=== PATIENT | female | born 1980 | race American Indian/Alaskan Native ===

== ENCOUNTER 2018-01-28 21:02 | Emergency (ER) | payer SELFPAY ==
[2018-01-28 22:50] LABS: HCG Qualitative,Urine Negative (Negative)
[2018-01-28 22:56] LABS: Bilirubin,Urine NEG (Negative); Blood,Urine NEG (Negative); Color,Urine Yellow (Yellow); Mucus,Urine FEW /HPF; Protein,Urine <15 mg/dL mg/dL (Negative)
[2018-01-28 22:57] LABS: WBC,Urine < 1.0 /HPF (0.0-6.0)
[2018-01-29 01:43] VITALS: BP 125/83
[2018-01-29] MEDS ORDERED: TORADOL IM ONE (04:51)
[2018-01-29] MEDS ORDERED: DECADRON IM ONE (04:54)
[2018-01-29] MEDS ORDERED: DECADRON ONE (04:59)
[2018-01-29] MEDS ORDERED: TORADOL ONE (04:59)
--- NOTE | 2018-01-29 05:17 | Emergency Department Report ---
ED Back Pain/Injury [facility] - General Chief Complaint: Back Pain/Injury Stated Complaint: BACK PAIN Time Seen by Provider: 01/29/18 04:50 Source: patient Limitations: No Limitations - History of Present Illness Initial Comments: 37-year-old [place] female comes to the emergency room complaining of back pain that she states she has had all week. Patient reports that she started moving on Wednesday and she started having pain on Wednesday. Patient reports that she was having back pain and asked her son to step on her back. She sustained as he put his foot in the middle of her back if felt like he was stepping on a ball. Patient reports that she did take Advil 800 mg yesterday 1 dose and reports that it did help with her pain. Patient reports that she has her most pain right under her right scapular. Patient denies any past medical history reports no known drug allergies currently takes no medications on a daily basis. MD Complaint: back pain -: days(s) (4) Place: home Severity scale (0 -10): 9 Quality: sharp Consistency: constant Improves With: medication Worsens With: movement Context: turning/twisting Treatments Prior to Arrival: NSAIDS - Related Data Previous Rx's Medication Instructions Recorded Last Taken Type Naproxen [Naprosyn] 500 mg PO Q12H #20 tablet 01/29/18 Unknown Rx Allergies Allergy/AdvReac Type Severity Reaction Status Date / Time No Known Allergies Allergy Unverified 01/28/18 21:41 ED Review of Systems ROS: Stated complaint: BACK PAIN Other details as noted in HPI ED Past Medical Hx - Past Medical History Previous Medical History?: No - Surgical History Past Surgical History?: No - Social History Smoking Status: Current Every Day Smoker - Medications Home Medications: Home Medications Medication Instructions Recorded Confirmed Last Taken Type Naproxen [Naprosyn] 500 mg PO Q12H #20 tablet 01/29/18 Unknown Rx ED Physical Exam - General Limitations: No Limitations General appearance: alert, in no apparent distress - Head Head exam: Present: atraumatic, normocephalic - ENT ENT exam: Present: mucous membranes moist - Respiratory Respiratory exam: Present: normal lung sounds bilaterally. Absent: respiratory distress - Cardiovascular Cardiovascular Exam: Present: regular rate, normal rhythm. Absent: systolic murmur, diastolic murmur, rubs, gallop - Back Exam Back exam: Present: full ROM, tenderness (midthoracic tenderness), muscle spasm - Expanded Back Exam Expanded Back exam: Negative Straight Leg Raising: Right, Left - Neurological Exam Neurological exam: Present: alert, oriented X3 - Psychiatric Psychiatric exam: Present: normal affect, normal mood - Skin Skin exam: Present: warm, dry, intact, normal color. Absent: rash ED Course Vital Signs 01/28/18 01/29/18 21:38 01:41 Temperature 98.6 F 98.7 F Pulse Rate 87 67 Respiratory 17 14 Rate Blood Pressure 145/85 125/83 O2 Sat by Pulse 100 Oximetry ED Medical Decision Making - Medical Decision Making Patient's been evaluated by this provider fast track. Toradol 30 mg IM given for pain management as well as trigger point injection with lidocaine and dexamethasone given in the right scapular angle. Critical care attestation.: If time is entered above; I have spent that time in minutes in the direct care of this critically ill patient, excluding procedure time. ED Disposition Clinical Impression: Trigger point with back pain Back pain Qualifiers: Back pain location: thoracic back pain Chronicity: acute Back pain laterality: right Qualified Code(s): M54.6 - Pain in thoracic spine Disposition: DC-01 TO HOME OR SELFCARE Is pt being admited?: No Does the pt Need Aspirin: No Condition: Stable Instructions: Trigger Point Pain (ED), Back Pain (ED) Additional Instructions: Please take pain medication as prescribed. All of with her primary care provider symptoms persist or gets worse. Prescriptions: Naproxen [Naprosyn] 500 mg PO Q12H #20 tablet Referrals: PRIMARY CARE [Primary Care Provider] - 3-5 Days [facility] [Provider Group] - 3-5 Days Forms: Work/School Release Form(ED)
== END 2018-01-29 05:27 | disposition home or self-care (01) ==
LOC: ED 21:02
DX: M54.6 Pain in thoracic spine (principal)
CPT/HCPCS: 81001; 81025; 96372; 99283; J1100; J1885

== ENCOUNTER 2020-03-14 10:39 | Emergency (ER) | payer SELFPAY ==
[2020-03-14 11:08] VITALS: BP 140/80
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
--- NOTE | 2020-03-14 12:56 | Emergency Department Report ---
HPI - General Chief Complaint: Anxiety Time Seen by Provider: 03/14/20 11:45 - HPI HPI: This is a 39-year-old female who presents to the emergency department with a complaint of some numbness and paresthesias that have been going on to the bilateral lower extremities for several weeks intermittently. She also complains of some nonspecific lightheadedness and/or dizziness. She also complains of some anxiety that has been going on for weeks, if not longer, that is causing her to have some hair loss. Patient also appears to be expressing some delusions. She says that there is some type of software that has been on her telephone and computer that is "tracking me", and that is also giving off some type of radiation that she believes is causing her previously mentioned symptoms. She has not taken anything for her symptoms prior to presentation. She denies any diagnosed psychiatric or medical conditions. She denies any alcohol or illicit drug use. She denies any auditory or visual hallucinations, or any suicidal or homicidal ideations. ED Past Medical Hx - Past Medical History Previous Medical History?: No - Surgical History Past Surgical History?: No - Social History Smoking Status: Current Every Day Smoker Substance Use Type: None - Medications Home Medications: Home Medications Medication Instructions Recorded Confirmed Last Taken Type Naproxen [Naprosyn] 500 mg PO Q12H #20 tablet 01/29/18 Unknown Rx ED Review of Systems ROS: Stated complaint: DIZZY Other details as noted in HPI Comment: All other systems reviewed and negative Constitutional: denies: chills, fever Eyes: denies: eye pain, vision change ENT: denies: ear pain, throat pain Respiratory: denies: cough, wheezing Cardiovascular: denies: palpitations, edema Gastrointestinal: denies: abdominal pain, vomiting Genitourinary: denies: dysuria, discharge Musculoskeletal: denies: back pain, arthralgia Neurological: numbness, paresthesias, other (dizzy). denies: headache Physical Exam - Physical Exam Vital Signs: Vital Signs 03/14/20 11:02 Temperature 98.6 F Pulse Rate 79 Respiratory 18 Rate Blood Pressure 140/80 O2 Sat by Pulse 100 Oximetry Physical Exam: GENERAL: The patient is well-developed well-nourished. HENT: Normocephalic. Atraumatic. Patient has moist mucous membranes. EYES: Extraocular motions are intact. NECK: Supple. Trachea is midline. CHEST/LUNGS: Clear to auscultation. There is no respiratory distress noted. HEART/CARDIOVASCULAR: Regular. There is no tachycardia. There is no murmur. ABDOMEN: Abdomen is soft, nontender. Patient has normal bowel sounds. SKIN: Skin is warm and dry. NEURO: The patient is awake, alert, and oriented. The patient is cooperative. The patient has no focal neurologic deficits. Normal speech. MUSCULOSKELETAL: There is no tenderness or deformity. There is no limitation range of motion. Muscle strength 5 out of 5 for upper and lower extremities bilaterally. ED Course Vital Signs 03/14/20 11:02 Temperature 98.6 F Pulse Rate 79 Respiratory 18 Rate Blood Pressure 140/80 O2 Sat by Pulse 100 Oximetry ED Medical Decision Making - Lab Data Result diagrams: 03/14/20 12:54 03/14/20 12:54 - EKG Data -: EKG Interpreted by Me EKG shows normal: sinus rhythm, axis, intervals, QRS complexes, ST-T waves Rate: normal - EKG Data When compared to previous EKG there are: previous EKG unavailable Interpretation: normal EKG - Medical Decision Making This patient presents to the emergency department with a complaint of some anxiety, lower extremity numbness/paresthesias, and she also appears to have some delusions. At the time of my examination the patient does not exhibit any significant anxiety. Heart and lung sounds are normal to auscultation. She is awake, alert, oriented, AAO x3. She does not have any focal, motor or sensory deficits and her cranial nerves are intact. She has full muscle strength to the bilateral upper and lower extremities. Patient's labs have been mostly unremarkable except for a slightly elevated TSH level, and a urine drug screen positive for marijuana. Vital signs have been reassuring throughout her ED course. Regarding the paresthesias, the patient does not appear to have any emergent medical condition that requires admission. She says that she has an appointment with a primary care physician on 27 March. Otherwise she can return to the emergency department with any worsening of her symptoms or with any acute distress. Patient does express, what I feel are, delusions. She talks about a cyber att ack, identity theft, being monitored by her job on her own personal electronics, and she describes that these electronics are giving off some type of radiation or energy. The patient does not want to stay in the emergency department for a mental health evaluation. She is awake, oriented, calm and appropriate. The patient is able to perform all of her ADLs. The patient allegedly has a job that she has been holding down despite these thoughts and/or delusions. She denies any auditory or visual hallucinations. She denies any suicidal or homicidal ideations. Therefore, the patient does not appear to meet criteria to be admitted 1013 or require inpatient psychiatric stabilization. The patient will be discharged home to follow-up with primary care and she has been given a referral for the [facility]. Critical Care Time: No Critical care attestation.: If time is entered above; I have spent that time in minutes in the direct care of this critically ill patient, excluding procedure time. ED Disposition Clinical Impression: Paresthesias, Anxiety Disposition: DC-01 TO HOME OR SELFCARE Is pt being admited?: No Condition: Stable Instructions: Paresthesia (ED), Anxiety (ED) Additional Instructions: Please follow-up with your primary care physician in the next few days if possible. I have given you a referral for the [facility] facility to follow-up regarding your anxiety and/or panic attacks. Return to the emergency department with any worsening of your symptoms or with any acute distress. Referrals: PRIMARY CARE, [Primary Care Provider] - 3-5 Days [facility] [Outside] - 3-5 Days Forms: Work/School Release Form(ED) Time of Disposition: 14:34
[2020-03-14 13:21] LABS: Basophils % (Auto) 0.4 % (0.0-1.8); Eosinophils % (Auto) 0.6 % (0.0-4.3); Hematocrit 38.9 % (30.3-42.9); Hemoglobin 13.6 gm/dl (10.1-14.3); Lymphocytes # (Auto) 1.6 K/mm3 (1.2-5.4); Lymphocytes % (Auto) 25.3 % (13.4-35.0); Mean Corpuscular HGB Conc 35 % (30-34); Mean Corpuscular Volume 85 fl (79-97); Monocytes # (Auto) 0.4 K/mm3 (0.0-0.8); Monocytes % (Auto) 6.5 % (0.0-7.3); Platelet Count 195 K/mm3 (140-440); Red Blood Count 4.55 M/mm3 (3.65-5.03); Red Cell Distribution Width 13.8 % (13.2-15.2)
[2020-03-14 13:24] LABS: Bilirubin,Urine NEG (Negative); Blood,Urine NEG (Negative); Color,Urine Yellow (Yellow); Protein,Urine <15 mg/dL mg/dL (Negative); WBC,Urine < 1.0 /HPF (0.0-6.0)
[2020-03-14 13:36] LABS: Blood Urea Nitrogen 7 mg/dL (7-17); Calcium 8.8 mg/dL (8.4-10.2); Hemolysis Index 12
[2020-03-14 13:37] LABS: Amphetamine Screen,Urine Negative; Benzodiazepines Screen,Urine Negative; Cocaine Screen,Urine Negative; Methadone Screen,Urine Negative; Opiate Screen,Urine Negative
[2020-03-14 13:45] LABS: BUN/Creatinine Ratio 10
[2020-03-14 14:14] LABS: Cannabinoid Screen,Urine Positive
== END 2020-03-14 14:53 | disposition home or self-care (01) ==
LOC: ED 10:39
DX: R20.2 Paresthesia of skin (principal); F41.9 Anxiety disorder, unspecified; F17.200 Nicotine dependence, unspecified, uncomplicated; Z79.899 Other long term (current) drug therapy
CPT/HCPCS: 36415; 80048; 80307; 80320; 81001; 84443; 85025; 93005; G0480

== ENCOUNTER 2020-11-27 20:35 | Emergency (ER) | payer OTHER ==
[2020-11-27 21:04] VITALS: BP 142/93
[2020-11-27] MEDS ORDERED: TETANUS,DIPH,PERTUSS(ACELL) VACCINE 0.5 ML SYRINGE IM ONE (21:23)
[2020-11-27] MEDS ORDERED: NEOMY 3.5 MG/BACIT 400 UNITS/POLY B 5000 UNITS/GM OINT PACKET TP STA (21:27)
--- NOTE | 2020-11-27 21:27 | Emergency Department Report ---
ED Lower Extremity HPI - General Chief Complaint: Animal Bite Stated Complaint: DOG BITE/RT LEG Time Seen by Provider: 11/27/20 21:23 Source: patient Mode of arrival: Ambulatory Limitations: Physical Limitation - History of Present Illness MD Complaint: leg injury (dog bite to right lower leg Just [employer]) -: Sudden Injury: Leg: Right Type of Injury: puncture wound Place: home Severity: mild Improves With: nothing Context: direct blow Associated Symptoms: swelling, ambulatory - Related Data Previous Rx's Medication Instructions Recorded Last Taken Type Naproxen [Naprosyn] 500 mg PO Q12H #20 tablet 01/29/18 Unknown Rx Amoxicillin/Potassium Clav 1 each PO BID #20 tablet 11/27/20 Unknown Rx [Augmentin 875-125 Tablet] Ketorolac [Toradol] 10 mg PO Q6H PRN #14 tablet 11/27/20 Unknown Rx Allergies Allergy/AdvReac Type Severity Reaction Status Date / Time No Known Allergies Allergy Unverified 01/28/18 21:41 ED Review of Systems ROS: Stated complaint: DOG BITE/RT LEG Other details as noted in HPI Comment: All other systems reviewed and negative ED Past Medical Hx - Past Medical History Previous Medical History?: No - Surgical History Past Surgical History?: No - Social History Smoking Status: Current Every Day Smoker Substance Use Type: None - Medications Home Medications: Home Medications Medication Instructions Recorded Confirmed Last Taken Type Naproxen [Naprosyn] 500 mg PO Q12H #20 tablet 01/29/18 Unknown Rx Amoxicillin/Potassium Clav 1 each PO BID #20 tablet 11/27/20 Unknown Rx [Augmentin 875-125 Tablet] Ketorolac [Toradol] 10 mg PO Q6H PRN #14 tablet 11/27/20 Unknown Rx ED Physical Exam - General Limitations: Physical Limitation General appearance: alert, in no apparent distress - Head Head exam: Present: atraumatic, normocephalic - Eye Eye exam: Present: normal appearance, PERRL, EOMI Pupils: Present: normal accommodation - ENT ENT exam: Present: normal exam, mucous membranes moist - Neck Neck exam: Present: normal inspection - Respiratory Respiratory exam: Present: normal lung sounds bilaterally. Absent: respiratory distress - Cardiovascular Cardiovascular Exam: Present: regular rate, normal rhythm. Absent: systolic murmur, diastolic murmur, rubs, gallop - GI/Abdominal GI/Abdominal exam: Present: soft, normal bowel sounds - Extremities Exam Extremities exam: Present: normal inspection, tenderness, normal capillary refill - Expanded Lower Extremity Exam Right Lower Leg exam: Present: tenderness, swelling, ecchymosis (puncture wound to right leg tender. pulse 2+. full ROM) Ankle exam: Present: normal inspection Foot/Toe exam: Present: normal inspection Neuro vascular tendon exam: Present: no vascular compromise Gait: Positive: observed and normal 1 - puncture wound site - Back Exam Back exam: Present: normal inspection - Neurological Exam Neurological exam: Present: alert, oriented X3 - Psychiatric Psychiatric exam: Present: normal affect, normal mood - Skin Skin exam: Present: warm, dry, intact, normal color. Absent: rash ED Course Vital Signs 11/27/20 21:04 Temperature 98.6 F Pulse Rate 76 Respiratory 16 Rate Blood Pressure 142/93 [Right] O2 Sat by Pulse 100 Oximetry Critical care attestation.: If time is entered above; I have spent that time in minutes in the direct care of this critically ill patient, excluding procedure time. ED Disposition Clinical Impression: Dog bite, Puncture wound, Tetanus toxoid inoculation Disposition: - TO HOME OR SELFCARE Is pt being admited?: No Does the pt Need Aspirin: No Condition: Stable Instructions: VIS, Tetanus, Diphtheria (Td); Tetanus, Diphtheria, Pertussis (Tdap) - CDC, Animal Bite, Adult, [id number] Prescriptions: Amoxicillin/Potassium Clav [Augmentin 875-125 Tablet] 1 each PO BID #20 tablet Ketorolac [Toradol] 10 mg PO Q6H PRN #14 tablet PRN Reason: Pain Referrals: [facility] [Provider Group] - 3-5 Days Forms: Work/School Release Form(ED)
== END 2020-11-27 23:30 | disposition home or self-care (01) ==
LOC: ED 20:35
DX: S81.831A Puncture wound without foreign body, right lower leg, initial encounter (principal); F17.200 Nicotine dependence, unspecified, uncomplicated; W54.0XXA Bitten by dog, initial encounter; Y93.89 Activity, other specified; Y92.89 Other specified places as the place of occurrence of the external cause; Y99.8 Other external cause status
CPT/HCPCS: 90471; 90715; 99282; A6250

== ENCOUNTER 2020-12-05 21:07 | Emergency (ER) | payer OTHER ==
[2020-12-05 23:10] VITALS: BP 129/78
[2020-12-06] MEDS ORDERED: HYDROcodone/ACETAMINOPHEN 5-325 MG TAB PO ONE (03:48)
[2020-12-06] MEDS ORDERED: LIDOCAINE-MPF (1%) 10 MG/1 ML VIAL 5 ML INFILTRATI ONE (03:48)
--- NOTE | 2020-12-06 04:19 | Emergency Department Report ---
- General Chief Complaint: Wound/Laceration Stated Complaint: LACERATION TO RIGHT THUMB Time Seen by Provider: 12/06/20 03:48 Source: patient Mode of arrival: Ambulatory Limitations: No Limitations - History of Present Illness Initial Comments: Patient 40-year-old female who presents for right posterior thumb laceration. Patient states she was opening a can of dog food and her hand slipped on the open can cause a laceration approximately 1 inch. Bleeding was controlled by direct pressure self applied. Patient advises last tetanus shot 1 week ago. There is no nerve tendon or muscle damage, there is no obvious deformity, range of motion remains intact. - Related Data Previous Rx's Medication Instructions Recorded Last Taken Type Naproxen [Naprosyn] 500 mg PO Q12H #20 tablet 01/29/18 Unknown Rx Amoxicillin/Potassium Clav 1 each PO BID #20 tablet 11/27/20 Unknown Rx [Augmentin 875-125 Tablet] Ketorolac [Toradol] 10 mg PO Q6H PRN #14 tablet 11/27/20 Unknown Rx cephALEXin [Keflex] 500 mg PO Q8HR 7 Days #21 cap 12/06/20 Unknown Rx traMADoL [Ultram] 50 mg PO Q6HR PRN #12 tablet 12/06/20 Unknown Rx Allergies Allergy/AdvReac Type Severity Reaction Status Date / Time No Known Allergies Allergy Unverified 01/28/18 21:41 ED Review of Systems ROS: Stated complaint: LACERATION TO RIGHT THUMB Other details as noted in HPI Constitutional: denies: chills, fever Eyes: denies: eye pain, eye discharge, vision change ENT: denies: ear pain, throat pain Respiratory: denies: cough, shortness of breath, wheezing Cardiovascular: denies: chest pain, palpitations Endocrine: no symptoms reported Gastrointestinal: denies: abdominal pain, nausea, diarrhea Genitourinary: denies: urgency, dysuria, discharge Musculoskeletal: other (right thumb pain laceration ) Skin: denies: rash, lesions Neurological: denies: headache, weakness, paresthesias Psychiatric: denies: anxiety, depression Hematological/Lymphatic: denies: easy bleeding, easy bruising ED Past Medical Hx - Past Medical History Previous Medical History?: No - Surgical History Past Surgical History?: No - Social History Smoking Status: Current Every Day Smoker Substance Use Type: None - Medications Home Medications: Home Medications Medication Instructions Recorded Confirmed Last Taken Type Naproxen [Naprosyn] 500 mg PO Q12H #20 tablet 01/29/18 Unknown Rx Amoxicillin/Potassium Clav 1 each PO BID #20 tablet 11/27/20 Unknown Rx [Augmentin 875-125 Tablet] Ketorolac [Toradol] 10 mg PO Q6H PRN #14 tablet 11/27/20 Unknown Rx cephALEXin [Keflex] 500 mg PO Q8HR 7 Days #21 cap 12/06/20 Unknown Rx traMADoL [Ultram] 50 mg PO Q6HR PRN #12 tablet 12/06/20 Unknown Rx ED Physical Exam - General Limitations: No Limitations General appearance: alert, in no apparent distress - Head Head exam: Present: atraumatic, normocephalic - Eye Eye exam: Present: normal appearance, EOMI Pupils: Present: normal accommodation - ENT ENT exam: Present: mucous membranes moist - Neck Neck exam: Present: normal inspection - Respiratory Respiratory exam: Present: normal lung sounds bilaterally. Absent: respiratory distress, wheezes - Cardiovascular Cardiovascular Exam: Present: regular rate, normal rhythm, normal heart sounds. Absent: systolic murmur, diastolic murmur, rubs, gallop - GI/Abdominal GI/Abdominal exam: Present: soft, distended, normal bowel sounds. Absent: tenderness - Rectal Rectal exam: Present: deferred - Extremities Exam Extremities exam: Present: full ROM - Expanded Upper Extremity Exam Right Hand Wrist exam: Present: full ROM, tenderness (right engraver optical frames), laceration (2 cm ). Absent: swelling, deformity, crepidus, dislocation Neuro motor exam: Present: thumb opposition intact, thumb IP flexion intact, thumb adduction intact, fingers 2-5 abduction intact Neurosensory exam: Present: radial nerve intact - Back Exam Back exam: Present: normal inspection, full ROM - Neurological Exam Neurological exam: Present: alert, oriented X3, CN II-XII intact, reflexes normal. Absent: motor sensory deficit - Expanded Neurological Exam Expanded Patient oriented to: Present: person, place, time Speech: Present: fluid speech Sensory exam: Upper Extremity Light Touch: Normal, Upper Extremity Pin Prick: Normal, Upper Extremity Temperature: Normal Motor strength exam: RUE: 5, LUE: 5 DTR: tricep (R): 2+, tricep (L): 2+ Best Eye Response (Travon): (4) open spontaneously Best Motor Response (Travon): (6) obeys commands Best Verbal Response (Travon): (5) oriented [place] Total: 15 - Psychiatric Psychiatric exam: Present: normal affect, normal mood - Skin Skin exam: Present: warm, dry, normal color, other (laceration as above ). Absent: rash ED Course Vital Signs 12/05/20 22:47 Temperature 98.0 F Pulse Rate 60 Respiratory 16 Rate Blood Pressure 129/78 O2 Sat by Pulse 99 Oximetry - Laceration /Wound Repair Right Posterior Proximal Finger Wound Location: upper extremity (Right posterior thumb base laceration approximately 2 cm superficial, no nerve muscle or tendon damage, range of motion is intact, no deformity,) Wound Length (cm): 2 Wound's Depth, Shape: superficial Wound Explored: clean Irrigated w/ Saline (ccs): 20 Betadine Prep?: Yes Anesthesia: 1% Lidocaine Volume Anesthetic (ccs): 1 Wound Debrided: none required Wound Repaired With: Steri-strips, Dermabond Sterile Dressing Applied?: No Progress: Right posterior thumb base 2 cm laceration, no nerve muscle or tendon damage, range of motion remains intact to direct apposition, PHARMACY ASSISTANT less than 3 seconds, site cleaned with alcohol prep, anesthesia with 1 cc 1% lidocaine via digital block, digital block was achieved, wound irrigated with 20 cc sterile saline, no foreign bodies noted, no deformity no crepitus, small wound closed with Mike mabond and quarter inch Steri-Strip, range of motion remains intact, all bleeding is controlled patient tolerated procedure with minimal distress, patient given post care instructions. Patient verbalized understanding of same. ED Medical Decision Making - Medical Decision Making Right posterior thumb laceration see procedure note, all bleeding is controlled, range of motion remains intact, patient tolerating minimal distress, patient DC'd to home with prescriptions, patient will follow-up with PCP in 2- 3 days. Patient verbalized agreement and understanding with same patient DC'd in stable condition at this time Critical care attestation.: If time is entered above; I have spent that time in minutes in the direct care of this critically ill patient, excluding procedure time. ED Disposition Clinical Impression: Laceration of thumb, right Qualifiers: Encounter type: initial encounter Damage to nail status: without damage Foreign body presence: without foreign body Qualified Code(s): S61.011A - Laceration without foreign body of right thumb without damage to nail, initial encounter Disposition: DC-01 TO HOME OR SELFCARE Is pt being admited?: No Does the pt Need Aspirin: No Condition: Stable Instructions: Sutures, [place], or Adhesive Wound Closure, [id number] Additional Instructions: Take medication as prescribed, follow-up primary care doctor in 2 to 3 days for wound check. Prescriptions: cephALEXin [Keflex] 500 mg PO Q8HR 7 Days #21 cap traMADoL [Ultram] 50 mg PO Q6HR PRN #12 tablet PRN Reason: Pain Referrals: [facility] [Provider Group] - 3-5 Days Forms: Work/School Release Form(ED) Time of Disposition: 04:29
== END 2020-12-06 04:50 | disposition home or self-care (01) ==
LOC: ED 21:07
DX: S61.011A Laceration without foreign body of right thumb without damage to nail, initial encounter (principal); F17.200 Nicotine dependence, unspecified, uncomplicated; Z79.899 Other long term (current) drug therapy; X58.XXXA Exposure to other specified factors, initial encounter; Y93.89 Activity, other specified; Y92.89 Other specified places as the place of occurrence of the external cause; Y99.8 Other external cause status